=== PATIENT | female | born 1985 | race African-American/Black ===

== ENCOUNTER 2017-11-21 14:40 | Inpatient (IN) | payer BC ==
[2017-11-21] MEDS ORDERED: CITRIC ACID/SODIUM CITRATE 30 ML UNIT-DOSE CUP PO ONE (15:56)
[2017-11-21] MEDS ORDERED: ELECTROLYTE-148 SOLN 1,000 ML IV SCH (16:00)
[2017-11-21] MEDS ORDERED: BENZOCAINE 20% 57 GM BOTTLE TP PRN (16:03)
[2017-11-21] MEDS ORDERED: diphenhydrAMINE HCL 25 MG CAPSULE (FP) PO PRN (16:03)
[2017-11-21] MEDS ORDERED: WITCH HAZEL 50% (TUCKS) 40 PAD/JAR PAD TP PRN (16:03)
[2017-11-21] MEDS ORDERED: BENZOCAINE 28 GM HEMORRHOIDAL OINTMENT PR PRN (16:03)
[2017-11-21 16:29] VITALS: BMI 34.3
[2017-11-21] MEDS ORDERED: METHYLERGONOVINE MALEATE 0.2 MG/1 ML AMP IM PRN (16:56)
[2017-11-21] MEDS ORDERED: ceFAZolin SODIUM 1 GM VIAL ONE (16:57)
[2017-11-21] MEDS ORDERED: morphine SULFATE/Preservative Free 0.5 MG/ML (1cc Syringe) ONE (16:57)
[2017-11-21] MEDS ORDERED: ePHEDrine SULFATE 50 MG/1 ML AMPULE ONE (17:02)
[2017-11-21] MEDS ORDERED: morphine SULFATE/Preservative Free 0.5 MG/ML (1cc Syringe) SPIN ONE (17:12)
[2017-11-21] MEDS ORDERED: OXYTOCIN 20 UNITS in 0.9% NS 20 UNIT/1,000 ML INFUS.BAG IV ONE ×2 (17:20→19:20)
[2017-11-21] MEDS ORDERED: ONDANSETRON 4 MG/2 ML VIAL IVPUSH PRN (17:53)
[2017-11-21] MEDS ORDERED: OXYTOCIN 20 UNITS in 0.9% NS 20 UNIT/1,000 ML INFUS.BAG IV SCH (18:45)
--- NOTE | 2017-11-21 18:45 | HP ---
Past Medical History - Primary Care Physician PCP:: Kelly Suggs - Admission Chief Complaint: Elective Section. History of Herpes History Source: Patient - Past Medical History ...: 4 ...Para: 0 ...Term: 0 ...: 0 ...Spon : 0 ...Induced : 3 ...Multiple Gestation: 0 ...LMP: 02/16/17 ... Weeks Gestation by Dates: 39.4 ...EDC by Dates: 11/23/17 - Past Surgical History Hx Myomectomy: No Hx Transabdominal Cerclage: No - Smoking History Smoking history: Never smoked Have you smoked in the past 12 months: No - Alcohol/Substance Use Hx Alcohol Use: No History of Substance Use: reports: None Home Medications - Allergies Allergies/Adverse Reactions: Allergies Allergy/AdvReac Type Severity Reaction Status Date / Time No Known Allergies Allergy Verified 11/18/14 01:39 - Home Medications Home Medications: Ambulatory Orders Vit No.129/Iron/Folic [ One Daily Tablet] 1 tab PO DAILY Valacyclovir HCl [Valtrex] 1 tab PO DAILY 11/21/17 Physical Exam - Maternity Vital Signs: Vital Signs Temperature 97.9 F 11/21/17 17:50 Pulse Rate 77 11/21/17 18:35 Respiratory Rate 18 11/21/17 18:35 Blood Pressure 116/57 11/21/17 18:35 O2 Sat by Pulse Oximetry (%) 100 11/21/17 18:35 Constitutional: Yes: Well Nourished, No Distress Neck: Yes: WNL Cardiovascular: Yes: WNL, Regular Rate and Rhythm Lungs: Clear to auscultation Breast(s): Yes: WNL - Abdominal Exam/OB Fundal Height: 40 Number of Fetuses: Single Presentation: Vertex Contractions: No Category: I Accelerations: Non-Uniform Decelerations: None - Vaginal Exam/OB Amniotic Membrane Status: Intact Presentation: Vertex/Position Station: -1 - Physical Exam Musculoskeletal: Yes: WNL Extremities: Yes: WNL Psychiatric: Yes: WNL, Alert, Oriented Hemorrhage Risk Assessment - Risk Factors Risk Score: 1 Risk Level: Medium Risk Problem List - Problems (1) Delivery by elective section Code(s): O82 - ENCOUNTER FOR DELIVERY WITHOUT INDICATION (2) 40 weeks gestation of Code(s): Z3A.40 - 40 WEEKS GESTATION OF Assessment/Plan IUp at 40 week Elective Section Herpes Plan Section
--- NOTE | 2017-11-21 18:48 | OP ---
Operative Note - Note: Operative Date: 11/21/17 Pre-Operative Diagnosis: Elective Section. IUP at 40 week. Hx of herpes Operation: Primary low transverse Section Findings: Live female infant Post-Operative Diagnosis: Same as Pre-op Surgeon: Kelly Suggs Fitter And Turner: Merrill Bernstein Anesthesia: Spinal Estimated Blood Loss (mls): 600 Operative Report Dictated: Yes
[2017-11-21 19:17] LABS: ARTERIAL BLOOD GAS BASE EXCESS -3.3 meq/l (-2-2); ARTERIAL BLOOD GAS PCO2 47.7 mmHg (35-45); ARTERIAL BLOOD GAS pH 7.31 (7.35-7.45)
[2017-11-21 19:20] LABS: ARTERIAL BLOOD GAS PO2 30.5 mmHg (80-100)
[2017-11-21 19:21] LABS: ARTERIAL BLD GAS O2 SATURATION 67.1 % (90-98.9)
--- NOTE | 2017-11-21 20:30 | OP ---
DATE OF OPERATION: 11/21/2017 PREOPERATIVE DIAGNOSES: Elective section and herpes. OPERATION: Primary section. POSTOPERATIVE DIAGNOSIS: Life female infant. SURGEON: Kelly Suggs MD EDITOR: EITAN Salas. unavailable. ANESTHESIA: Spinal. ANESTHESIOLOGIST: Milind Carrasco MD FINDINGS: Live female delivered in OT position. PROCEDURE: The patient was taken to the operating room, placed in supine position, prepped and draped in the usual sterile fashion. After a timeout had been done in accordance with hospital regulations, a Pfannenstiel skin incision was made with a scalpel. Cautery was then used to go through the layers of abdominal wall to the level of the fascia. Fascia was cut in the midline. Cautery was then used to open the fascia in smiling fashion. Kochers then used to bluntly and sharply dissect the rectus muscle off the fascia. Muscles split in midline and peritoneal cavity was then entered and carried up and down with bladder retractors placed. Scalpel was then used to make a low transverse uterine incision. The incision was carried up with the use of bandage scissors. A live female infant was delivered in OT position. Nose and mouth suction performed. Shoulders were delivered without difficulty. Cord was clamped and cut, cord blood obtained. Placenta was manually extracted from the uterus. Uterus exteriorized and cleaned with clean lap pads. Uterine incision then closed using 0 Biosyn suture, 1st layer in continuous interlocking, 2nd layer imbricating the 1st layer. Hemostasis was achieved. Uterus interiorized. Tubes and ovaries normal. Abdominal sweep done. Peritoneal cavity was closed in 0 Biosyn suture. Fascia was then closed using 0 Vicryl suture in 2 parts. Skin was then closed using 3-0 Vicryl subcuticular. Fascial wound was washed and dressed. Patient tolerated procedure well. Estimated blood loss 600 mL. Sj CORONADO/[id number]
[2017-11-21] MEDS: IBUPROFEN 800 MG/8 ML IJ IVPB PRN (20:34)
[2017-11-21] MEDS ORDERED: TUBERCULIN PPD 5 TU/0.1ML SYRINGE (IN PATIENT USE ONLY) ID ONE (22:15)
[2017-11-22 07:51] LABS: HEMATOCRIT 30.2 % (32.4-45.2); MCH 29.5 pg (25.7-33.7); MCHC 33.2 g/dl (32.0-36.0); MEAN PLT VOLUME 10.6 fl (7.5-11.1); PLATELET COUNT 156 K/MM3 (134-434); RBC 3.39 M/mm3 (3.60-5.2); RDW 17.4 % (11.6-15.6)
[2017-11-22] MEDS: IBUPROFEN 800 MG/8 ML IJ IVPB PRN (08:26)
--- NOTE | 2017-11-22 15:02 | PN ---
Progress Note (short form) - Note Progress Note: Anesthesia post op note, POD#1, S/P under spinal with duramorph. Pat seen and examined. VSS.Pain well controlled,ambulating. No apparent post anesthesia complications. Signed off.
[2017-11-22] MEDS: ACETAMINOPHEN 325 MG TABLET (FP) PO PRN ×2 (15:15→21:49)
[2017-11-22] MEDS: SIMETHICONE 80 MG TAB.CHEW (FP) PO PRN ×2 (15:15→21:49)
[2017-11-22] MEDS ORDERED: oxyCODONE HCL 5 MG TABLET PO PRN (16:03)
[2017-11-22] MEDS ORDERED: BISACODYL 10 MG SUPP.RECT RC PRN (16:55)
[2017-11-22] MEDS: oxyCODONE HCL 5 MG TABLET PO PRN ×2 (17:13→21:50)
[2017-11-23] MEDS: ACETAMINOPHEN 325 MG TABLET (FP) PO PRN ×4 (03:21→21:19)
[2017-11-23] MEDS: SIMETHICONE 80 MG TAB.CHEW (FP) PO PRN ×4 (03:21→21:18)
[2017-11-23] MEDS: oxyCODONE HCL 5 MG TABLET PO PRN ×3 (03:22→16:07)
--- NOTE | 2017-11-23 06:51 | PN ---
Progress Note (SOAP) - Current Medications Current Medications: Active Medications Acetaminophen (Tylenol -) 650 mg PO Q4H PRN PRN Reason: FEVER Last Admin: 11/23/17 03:21 Dose: 650 mg Benzocaine (Americaine 20% [place] -) 1 spray TP PRN PRN PRN Reason: Pain - Topical Benzocaine (Americaine Ointment -) 1 applic GA PRN PRN PRN Reason: Pain - Topical Bisacodyl (Dulcolax Suppository -) 10 mg RC PRN PRN PRN Reason: CONSTIPATION Diphenhydramine HCl (Benadryl -) 25 mg PO Q6H PRN PRN Reason: FOR ITCHING Diphenhydramine HCl (Benadryl Injection -) 25 mg IVPUSH Q4H PRN PRN Reason: Pruritis Last Admin: 11/21/17 22:45 Dose: 25 mg Hydromorphone HCl (Dilaudid -) 4 mg PO Q4H PRN PRN Reason: PAIN LEVEL 7 - 10 Stop: 11/23/17 16:02 Parenteral Electrolytes (Plasma-Lyte 148 -) 1,000 mls @ 125 mls/hr IV ASDIR COUNTS INCLUDE 234 BEDS AT THE [facility] Last Admin: 11/21/17 16:30 Dose: 125 mls/hr Oxytocin/Sodium Chloride (Normal Saline+20 Units Oxytocin -) 20 unit in 1,000 mls @ 125 [facility]ls[facility] Last Admin: 11/21/17 17:28 Dose: 125 mls/hr Ibuprofen (Caldolor Injection -) 800 mg IVPB Q6H PRN PRN Reason: Fever - If PO not effective. Last Admin: 11/22/17 08:26 Dose: 800 mg Ibuprofen (Motrin -) 600 mg PO Q4H PRN PRN Reason: FEVER Methylergonovine Maleate (Methergine Injection -) 0.2 mg IM Q4H PRN PRN Reason: EXCESSIVE BLEEDING Ondansetron HCl (Zofran Injection) 4 mg IVPUSH Q4H PRN PRN Reason: NAUSEA Oxycodone HCl (Roxicodone -) 5 mg PO Q4H PRN PRN Reason: PAIN LEVEL 1-3 Oxycodone HCl (Roxicodone -) 10 mg PO Q4H PRN PRN Reason: PAIN LEVEL 4-6 Last Admin: 11/23/17 03:22 Dose: 10 mg Senna/Docusate Sodium (Pericolace -) 2 tablet PO HS PRN PRN Reason: CONSTIPATION Simethicone (Mylicon -) 80 mg PO Q4H PRN PRN Reason: GAS Last Admin: 11/23/17 03:21 Dose: 80 mg Witch Julissa/Glycerin (Tucks Pads -) 1 pad TP PRN PRN PRN Reason: Pain - Topical - Objective Vital Signs: Vital Signs Temperature 98.0 F 11/22/17 22:00 Pulse Rate 81 11/22/17 22:00 Respiratory Rate 20 11/22/17 22:00 Blood Pressure 126/68 11/22/17 22:00 O2 Sat by Pulse Oximetry (%) 100 11/21/17 18:35 Constitutional: Yes: Well Nourished, No Distress ....Post : Yes: Uterus firm, Uterus non-tender Breast(s): Yes: WNL Musculoskeletal: Yes: WNL Extremities: Yes: WNL Edema: No Wound/Incision: Yes: Clean/Dry, Steri Strips, Dressing Removed Neurological: Yes: WNL, Alert, Oriented Labs Lab Results: CBC, BMP 11/22/17 07:15 Problem List - Problems (1) Delivery by elective section Code(s): O82 - ENCOUNTER FOR DELIVERY WITHOUT INDICATION (2) 40 weeks gestation of Code(s): Z3A.40 - 40 WEEKS GESTATION OF Assessment/Plan POD 2 Flatus Plan Continue present management ambulate
[2017-11-23] MEDS: IBUPROFEN 600 MG TABLET (FP) PO PRN (21:18)
[2017-11-23] MEDS ORDERED: SENNOSIDES/DOCUSATE COMBO (SENNA PLUS) TABLET (UD) PO PRN (22:00)
[2017-11-24] MEDS: IBUPROFEN 600 MG TABLET (FP) PO PRN ×2 (03:07→10:35)
[2017-11-24] MEDS: SIMETHICONE 80 MG TAB.CHEW (FP) PO PRN ×2 (03:07→10:34)
[2017-11-24] MEDS: ACETAMINOPHEN 325 MG TABLET (FP) PO PRN ×2 (03:08→10:34)
--- NOTE | 2017-11-24 04:59 | DS ---
Physical Exam-EQUINE INTERN Vital Signs: Vital Signs Temperature 98.5 F 11/23/17 21:00 Pulse Rate 88 11/23/17 21:00 Respiratory Rate 20 11/23/17 21:00 Blood Pressure 133/72 11/23/17 21:00 O2 Sat by Pulse Oximetry (%) 100 11/21/17 18:35 Constitutional: Yes: Well Nourished Eyes: Yes: Conjunctiva Clear HENT: Yes: Atraumatic Neck: Yes: Supple Cardiovascular: Yes: Regular Rate and Rhythm Respiratory: Yes: Regular Gastrointestinal: Yes: Normal Bowel Sounds External Genitalia: Yes: Normal Vaginal Exam: Yes: Normal Cervix: Yes: Normal ....Post : Yes: Uterus firm Wound/Incision: Yes: Clean/Dry, Well Approximated, Steri Strips (in place) Neurological: Yes: Alert, Oriented ...Motor Strength: WNL Psychiatric: Yes: Alert, Oriented Labs: CBC, BMP 11/22/17 07:15 Delivery - Delivery Type of Anesthesia: Spinal Episiotomy/Laceration: None EBL (cc): 500 Delivery, Single - Stages of Labor Date of Delivery: 11/21/17 Time of Delivery: 17:25 Time Placenta Delivered: 17:29 - Condition of Infant Soil Science Teacher/Exhaust And Muffler Fitter Present: Yes Name: Royer Welch Infant Gender: Female Weight: 7 lb 5 oz Position: OT Total Hours ROM (Hrs/Mins): 1min - 1 Minute Total Score: 9 5 Minutes Total Score: 9 - [place] Feeding Plan Initial Plan: Elected not to breastfeed exclusively throughout hospitalization Discharge Summary Reason For Visit: Current Active Problems 40 weeks gestation of (Acute) Delivery by elective section (Acute) Procedures: Principal: Primary Low transverse Hospital Course: Routine post op care Condition: Good - Instructions Diet, Activity, Other Instructions: Physical activity Resume your normal everyday activity as tolerated no heavy lifting or exercise until seen by your surgeon. You may walk unlimited edwar of and climb stairs. You may resume driving the car when you feel safe and comfortable behind the wheel. No sexual activity as instructed. Wound care If you have a bandage, leave it on, and keep dry for 48-72 hours. After that time discard the outer bandage. If they are tapes on the skin under the out of bandage leave them in place. They will peel off in the next 7 to 10 days. Do Not Peel them off. You may shower the day after surgery. If there are tapes present on the skin, you may shower over them. Diet There are no dietary restrictions. Eat healthy, high-fiber foods. Drink 6 to 8 glasses of liquid each day. This will assist in keeping your bowels are regular. Pain management You may take Tylenol or acetaminophen or Ibuprofen (for example, Motrin, Advil etc.) from my pain prescription medication is ordered should be taken as prescribed for moderate to severe pain. Call MD for any of the following: Severe pain not relieved by medication Fever of 101 or higher Excessive bleeding or drainage on dressing Inability to urinate Disposition: HOME - Home Medications Comprehensive Discharge Medication List: Ambulatory Orders Vit No.129/Iron/Folic [ One Daily Tablet] 1 tab PO DAILY Valacyclovir HCl [Valtrex] 1 tab PO DAILY 11/21/17 Oxycodone HCl/Acetaminophen [Percocet 5-325 mg Tablet] 1 - 2 tab PO Q6H #20 tab MDD 6 11/23/17
[2017-11-24 09:15] LABS: HEMATOCRIT 29.4 % (32.4-45.2); HEMOGLOBIN 9.9 GM/dL (10.7-15.3); MCH 29.8 pg (25.7-33.7); MCHC 33.8 g/dl (32.0-36.0); MEAN CELL VOLUME 88.1 fl (80-96); MEAN PLT VOLUME 9.2 fl (7.5-11.1); PLATELET COUNT 206 K/MM3 (134-434); RBC 3.34 M/mm3 (3.60-5.2); RDW 17.3 % (11.6-15.6); WHITE BLOOD COUNT 9.4 K/mm3 (4.0-10.0)
[2017-11-24 11:50] VITALS: BP 119/72; PULSE 78; TEMP 98.3
--- NOTE | 2017-11-27 16:36 | PATH ---
Surgical Pathology Report Patient Name: CYNDIE SHABAZZ Med. Rec. 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 Specimen(s) Received PLACENTA Clinical History HSV 2, obese, anemia Primary , 39.4 weeks Final Diagnosis PLACENTA, SECTION: 398 G THIRD TRIMESTER PLACENTA WITH TRIVASCULAR UMBILICAL CORD AND ACUTE MILD TO MODERATE CHORIOAMNIONITIS. Electronically Signed Hanh Jordan M.D. Gross Description The specimen is received fresh labeled placenta and is a 398 gram, 16.5 x 13.5 x 2.2 cm. placenta with attached membranes and umbilical cord. The attached membranes are kraus, translucent with focal opacities and insert marginally. The umbilical cord measures 10 cm. in length and averages 1.3 cm. in diameter. The cord inserts eccentrically, 2 cm. to the nearest margin. No true knots or strictures are identified. Cut surface of the umbilical cord reveals 3 vessels. The surface is caruso-blue with minimal fibrin deposition and appropriate caliber vessels. The maternal surface is red-brown with focal defects. Sectioning reveals red-brown, spongy parenchyma. No lesions are identified. Bill Sorter sections are submitted in three cassettes as follows: 1- membrane rolls and umbilical cord; 2-3- full thickness sections of placenta. /11/26/[address] [facility]2017
== END 2017-11-24 13:05 | disposition home or self-care (01) | DRG 765 ==
LOC: JLDR 14:40 → J3W 20:17
PROVIDERS: ADMIT Obstetrics & Gynecology; ATTEND Obstetrics & Gynecology
PROC: 10D00Z1 Extraction of Products of Conception, Low, Open Approach (ICD-10-PCS; principal; 2017-11-21)
DX: O34.219 Maternal care for unspecified type scar from previous cesarean delivery (principal); O98.52 Other viral diseases complicating childbirth; B00.9 Herpesviral infection, unspecified; Z3A.40 40 weeks gestation of pregnancy; Z37.0 Single live birth
CPT/HCPCS: 36415; 36600; 82803; 85027; 88307-TC

== ENCOUNTER 2023-05-28 04:07 | Day surgery (SDC) | payer BC ==
[2023-05-24 15:43] VITALS: BMI 30.9
[2023-05-28] MEDS ORDERED: LIDOCAINE HCL 1%, 10 MG/ML (20ML VIAL) INF ONE ×2 (07:24→10:03)
[2023-05-28] MEDS ORDERED: ceFAZolin SODIUM 1 GM VIAL IVPB ONE ×2 (07:24→09:50)
[2023-05-28] MEDS ORDERED: LIDOCAINE HCL 1%, 10 MG/ML (20ML VIAL) ONE (07:42)
[2023-05-28] MEDS ORDERED: oxyCODONE HCL 5 MG TABLET PO PRN (08:45)
[2023-05-28] MEDS ORDERED: ONDANSETRON 4 MG/2 ML VIAL IVPUSH PRN (08:45)
[2023-05-28] MEDS ORDERED: FENTANYL CITRATE/PF 50 MCG/ML VIAL ONE ×2 (09:14→10:50)
[2023-05-28] MEDS ORDERED: PROPOFOL 40 ML ONE (09:14)
[2023-05-28] MEDS ORDERED: DEXAMETHASONE SOD PHOSPHATE 4 MG/1 ML VIAL ONE (09:14)
[2023-05-28] MEDS ORDERED: ONDANSETRON 4 MG/2 ML VIAL ONE (09:14)
[2023-05-28] MEDS ORDERED: KETOROLAC TROMETHAMINE 30 MG/1 ML VIAL ONE (09:14)
[2023-05-28] MEDS ORDERED: LIDOCAINE HCL/PF 2% SDV 5ML VIAL ONE (09:14)
[2023-05-28] MEDS ORDERED: MIDAZOLAM HCL 2 MG/2 ML SINGLE DOSE VIAL ONE (09:15)
[2023-05-28] MEDS ORDERED: SUCCINYLCHOLINE CHLORIDE 200 MG/10 ML SYRINGE ONE (09:15)
[2023-05-28] MEDS: LACTATED RINGERS SOLUTION 1,000 ML IV SCH ×2 (11:41→11:56)
[2023-05-28 12:39] VITALS: RESP 18
[2023-05-28 13:14] VITALS: BP 123/75; PULSE 80; TEMP 98.6
== END 2023-05-28 13:10 | disposition home or self-care (01) ==
LOC: JASUSAT 04:07
PROVIDERS: ATTEND Obstetrics & Gynecology Gynecologic Oncology
PROC: 0UBM0ZZ Excision of Vulva, Open Approach (ICD-10-PCS; principal; 2023-05-28 09:00)
DX: N90.1 Moderate vulvar dysplasia (principal)
CPT/HCPCS: 81025; 94760